=== PATIENT | female | born 1975 ===

== ENCOUNTER 2018-04-10 07:46 | Emergency (ER) | payer OTHER ==
[2018-04-10 08:11] VITALS: RESP 18; TEMP 98.3; O2SAT 100; BMI 20.1
--- NOTE | 2018-04-10 08:53 | C.PDOC ---
History Of Present Illness 43 year old female (LMP: 03-25-18) presents to the emergency department with complaints of left-sided pelvic pain since Friday04-05-18 after unprotected intercourse. Patient reports yellow vaginal discharge, and transient vaginal bleeding on 04-06-18. She denies history of gonorrhea, chlamydia, or genital herpes. Patient reports that she is in a monogamous relationship. Patient reports a past surgical history of two C-sections and a tubal ligation. Patient states that she was given Macrobid and Acyclovir for her condition by somebody. Patient denies fever, chills, nausea, vomiting, and diarrhea. Time Seen by Provider: 04/10/18 08:22 Chief Complaint (Nursing): Abdominal Pain History Per: Patient History/Exam Limitations: no limitations Onset/Duration Of Symptoms: Days (5) Current Symptoms Are (Timing): Still Present Location Of Pain/Discomfort: Other (left pelvic) Radiation Of Pain To:: None Quality Of Discomfort: "Pain" Associated Symptoms: Other (vaginal bleeding, vaginal discharge). denies: Fever, Chills, Nausea, Vomiting Abnormal Vaginal Bleeding: Yes Last Menstral Period: 03-25-18 Past Medical History Reviewed: Historical Data, Nursing Documentation, Vital Signs Vital Signs: Last Vital Signs Temp 98.3 F 04/10/18 07:55 Pulse 75 04/10/18 07:55 Resp 18 04/10/18 07:55 BP 119/74 04/10/18 07:55 Pulse Ox 100 04/10/18 07:55 - Medical History PMH: No Chronic Diseases Surgical History: Other Surgeries: Tubal ligation Family History: States: No Known Family Hx - Social History Hx Alcohol Use: No Hx Substance Use: No - Immunization History Hx Tetanus Toxoid Vaccination: No Hx Influenza Vaccination: No Hx Pneumococcal Vaccination: No Review Of Systems Constitutional: Negative for: Fever, Chills Gastrointestinal: Negative for: Nausea, Vomiting, Abdominal Pain, Diarrhea Genitourinary: Positive for: Vaginal Discharge, Vaginal Bleeding, Pelvic Pain. Negative for: Dysuria Musculoskeletal: Negative for: Back Pain Skin: Negative for: Rash, Lesions Physical Exam - Physical Exam Appears: Non-toxic, No Acute Distress Skin: Normal Color, Warm, Dry Head: Atraumatic, Normacephalic Eye(s): bilateral: Normal Inspection Oral Mucosa: Moist Neck: Normal, Supple Chest: Symmetrical, No Tenderness Cardiovascular: Rhythm Regular, No Murmur Respiratory: Normal Breath Sounds, No Rales, No Rhonchi, No Wheezing Gastrointestinal/Abdominal: Soft, No Tenderness, No Guarding, No Rebound Pelvic: Normal External Exam, Vaginal Discharge (copious, yellow, watery, and thick white discharge noted in vaginal vault. (Patient used Vagisil intravaginally last night), as well as thin yellowish discharge. 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 cp. No lesions noted. 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 Disposition Counseled Patient/Family Regarding: Studies Performed, Diagnosis, Need For Followup - Disposition Referrals: [facility] [Outside] [facility] [Outside] Disposition: HOME/ ROUTINE Disposition Time: 13:44 Condition: GOOD Additional Instructions: Por favor josué un seguimiento con la clnica de félix para mujeres o al gineclogo en la prxima semana, recomiende reposo plvico (nada en la vagina) hasta que se genere el genital Positivo, miles zaki necesita ser tratada tambin. Tylenol o MOtrin para el dolor si es necesario. Please follow up with [facility] or ladies suit operator in the next week, Recommmend pelvic rest (nothing in vagina) until genital culture resulted; pf positive, your partner needs to be treated as well. Tylenol or MOtrin for pain if needed. Instructions: Acute Pelvic Pain (DC) Forms: Gen Discharge Inst Angolan, [facility] (Angolan) - Clinical Impression Clinical Impression: Pelvic pain, Vaginal discharge - PA / ASSISTANT OCEANOGRAPHER / Resident Statement MD/DO has reviewed & agrees with the documentation as recorded. - Scribe Statement The provider has reviewed the documentation as recorded by the Scribe (Gray Trinidad) All medical record entries made by the Scribe were at my direction and personally dictated by me. I have reviewed the chart and agree that the record accurately reflects my personal performance of the history, physical exam, medical decision making, and the department course for this patient. I have also personally directed, reviewed, and agree with the discharge instructions and disposition.
[2018-04-10 09:07] LABS: SQUAMOUS EPITHIAL 1 /hpf (0-5); URINE BILIRUBIN NEGATIVE (NEGATIVE); URINE BLOOD 1+ (NEGATIVE); URINE CLARITY Clear (Clear); URINE COLOR Straw (YELLOW); URINE GLUCOSE (UA) NORMAL (Normal); URINE LEUKOCYTE ESTERASE NEG Leu/uL (Negative); URINE PROTEIN NEGATIVE (NEGATIVE); URINE UROBILINOGEN NORMAL mg/dL (0.2-1.0)
[2018-04-10 10:46] VITALS: BP 107/71; PULSE 57
--- NOTE | 2018-04-10 11:05 | US ---
Date of service: 04/10/2018 HISTORY: Left adnexal pain COMPARISON: None available. TECHNIQUE: Transabdominal and transvaginal pelvic ultrasound was performed. FINDINGS: UTERUS: Measures 9.6 x 4.4 x 7.1 cm. Anteverted, in size and appearance. No fibroid or other mass lesion seen. ENDOMETRIUM: Measures 14 mm in diameter. Unremarkable. CERVIX: No cervical abnormality identified. RIGHT OVARY: Measures 3.5 x 1.5 x 3.3 cm. No solid mass. Normal flow. LEFT OVARY: Measures 3.0 x 2.0 x 2.8 cm. No solid mass. Normal flow. FREE FLUID: There is small amount of free fluid in the cul de sac, likely physiologic. OTHER FINDINGS: None. IMPRESSION: Unremarkable pelvic ultrasound.
[2018-04-10] MEDS ORDERED: cefTRIAXone (Rocephin) 250 mg Inj IM STA (11:43)
== END 2018-04-10 14:09 | disposition home or self-care (01) ==
LOC: C.ER 07:46
DX: R10.2 Pelvic and perineal pain (principal); N89.8 Other specified noninflammatory disorders of vagina
CPT/HCPCS: 76830; 76856; 81001; 81025; 87086; 87491; 87591; 96372; 99285; J0696